=== PATIENT | female | born 1955 | race African-American/Black ===

== ENCOUNTER 2016-12-13 07:08 | Day surgery (SDC) | payer OTHER ==
[~2016-12-13] VITALS: Ht 162.6 cm; Wt 115.7 kg
[2016-12-13] MEDS ORDERED: ASPIRIN/SOD BICARB/CITRIC ACID 324MG TAB EFF ONE (07:31)
[2016-12-13] MEDS ORDERED: BENA20TA3 PO (07:43)
[2016-12-13] MEDS ORDERED: ROSU10TA PO (07:43)
[2016-12-13] MEDS ORDERED: ATEN-42 PO (07:43)
[2016-12-13] MEDS ORDERED: CYCL30CA PO (07:43)
[2016-12-13] MEDS ORDERED: ASPI-1035 PO (07:43)
[2016-12-13] MEDS ORDERED: IBUP-1636 PO (07:43)
[2016-12-13 07:48] LABS: HEMATOCRIT 38.4 % (36.0-48.0); HEMOGLOBIN 12.9 g/dL (12.0-16.0); MEAN CORPUSCULAR HEMOGLOBIN 30.5 pg (28.0-32.0); MEAN CORPUSCULAR HGB CONC 33.6 g/dL (31.0-37.0); MEAN CORPUSCULAR VOLUME 90.6 fL (81.0-99.0); PLATELET 391 x1000/uL (130-400); RED BLOOD CELL COUNT 4.24 mill/uL (4.2-5.4); RED CELL DISTRIBUTION WIDTH 12.4 % (11.6-14.6); WHITE BLOOD COUNT 8.3 x1000/uL (4.5-11.0)
[2016-12-13 07:49] LABS: ANION GAP 11; CALCIUM 9.4 mg/dL (8.5-10.1); CARBON DIOXIDE 25 mEq/L (21-32); CHLORIDE 108 mEq/L (98-107); INDEX HEMOLYSI 1 (1-3); INDEX ICTERIC 1 (1-4); INDEX LIPEMIC 1 (1-3)
[2016-12-13 07:51] LABS: PROTHROMBIN TIME 10.1 sec
[2016-12-13 07:53] LABS: UREA NITROGEN BLOOD 14 mg/dL (7-21); eGFR > 60 mL/min (>60)
[2016-12-13] MEDS ORDERED: LIDOCAINE HCL 1% 20ML VIAL (Pyxis) INJ ONE (07:53)
[2016-12-13] MEDS ORDERED: IODIXANOL 320MG/ML 100 ML BOTTLE IV ONE (07:53)
[2016-12-13] MEDS ORDERED: MIDAZOLAM HCL 2 MG/2 ML VIAL ONE ×2 (08:02→08:37)
[2016-12-13] MEDS ORDERED: FENTANYL CITRATE/PF 50MCG/ML 2ML VIAL ONE (08:02)
[2016-12-13] MEDS ORDERED: HYDROMORPHONE HCL/PF 2MG/ML (OR) ONE (08:03)
[2016-12-13] MEDS ORDERED: HEPARIN SODIUM 1,000 UNIT/1ML VIAL IV ONE (08:10)
[2016-12-13] MEDS ORDERED: ACETAMINOPHEN 325MG TABLET PO PRN (09:00)
[2016-12-13] MEDS ORDERED: MORPHINE SULFATE 2 MG/ML CPJ (NOT FOR IM USE) IV PRN (09:00)
[2016-12-13] MEDS ORDERED: ATROPINE SULFATE 1MG/10ML SYR IV PRN (09:00)
[2016-12-13] MEDS ORDERED: ONDANSETRON HCL 4MG/2ML VIAL IV PRN (09:00)
[2016-12-13] MEDS ORDERED: SODIUM CHLORIDE 0.45% 1,000 ML IV ONE (09:00)
== END 2016-12-13 14:00 | disposition home or self-care (01) ==
LOC: CCL 07:08
PROVIDERS: ATTEND Specialist
DX: I25.10 Atherosclerotic heart disease of native coronary artery without angina pectoris (principal); E78.00 Pure hypercholesterolemia, unspecified; I10 Essential (primary) hypertension; E66.9 Obesity, unspecified; Z95.5 Presence of coronary angioplasty implant and graft
CPT/HCPCS: 36415; 80048; 85027; 85610; 85730; 93458; C1769; C1887; C1893; J1170; J1644; J2250; J3010; J3490; Q9967

== ENCOUNTER 2019-04-30 06:42 | Day surgery (SDC) | payer OTHER ==
[~2019-04-30] VITALS: Ht 160 cm; Wt 117.5 kg
[~2019-04-30 06:42] MED LIST: ASPI-1393 PO; ATEN-42 PO; BENA20TA10 PO; CRES10 PO; CYCL30CA PO; IBUP-1636 PO
[2019-04-30] MEDS ORDERED: MONT10TA21 PO (07:48)
[2019-04-30] MEDS ORDERED: LOSA50TA41 PO (07:48)
[2019-04-30] MEDS ORDERED: METO25TA6 PO (07:48)
[2019-04-30] MEDS ORDERED: TIZA4CAP6 PO (07:48)
[2019-04-30] MEDS ORDERED: ASPIRIN/SOD BICARB/CITRIC ACID 324MG TAB EFF ONE (07:58)
[2019-04-30] MEDS ORDERED: LIDOCAINE HCL 1% 20ML VIAL (Pyxis) INJ ONE (08:09)
[2019-04-30] MEDS ORDERED: IODIXANOL 320MG/ML 100 ML BOTTLE IV ONE (08:10)
[2019-04-30] MEDS ORDERED: MIDAZOLAM HCL 2 MG/2 ML VIAL ONE ×2 (08:11→09:13)
[2019-04-30] MEDS ORDERED: FENTANYL CITRATE/PF 50MCG/ML 2ML VIAL ONE (08:12)
[2019-04-30] MEDS ORDERED: HEPARIN SODIUM 1,000 UNIT/1ML VIAL IV ONE (09:00)
[2019-04-30] MEDS ORDERED: NICARDIPINE 100MCG/ML 10ML VIAL (CATH LAB) IV ONE (09:00)
[2019-04-30] MEDS ORDERED: NITROGLYCERIN 50MCG/ML 10ML VIAL (CATH LAB) IV ONE (09:00)
[2019-04-30] MEDS ORDERED: ACETAMINOPHEN 325MG TABLET PO PRN (09:15)
[2019-04-30] MEDS ORDERED: ATROPINE SULFATE 1MG/10ML SYR IV PRN (09:15)
[2019-04-30] MEDS ORDERED: MORPHINE SULFATE 2 MG/ML CPJ (NOT FOR IM USE) IV PRN (09:15)
[2019-04-30] MEDS ORDERED: ONDANSETRON HCL 4MG/2ML INJ IV PRN (09:15)
== END 2019-04-30 15:40 | disposition home or self-care (01) ==
LOC: CCL 06:42
PROVIDERS: ATTEND Specialist
DX: I25.10 Atherosclerotic heart disease of native coronary artery without angina pectoris (principal); E66.01 Morbid (severe) obesity due to excess calories; E78.5 Hyperlipidemia, unspecified; I10 Essential (primary) hypertension; I25.2 Old myocardial infarction; Z87.891 Personal history of nicotine dependence; Z95.5 Presence of coronary angioplasty implant and graft; Z88.5 Allergy status to narcotic agent; Z79.82 Long term (current) use of aspirin; Z79.899 Other long term (current) drug therapy
CPT/HCPCS: 71045; 93005; 93458; 93880; 93970; 99152; 99153; C1769; C1887; C1893; J1644; J2250; J3010; J3490; Q9967; 93459; G0500

== ENCOUNTER 2019-05-30 05:31 | Inpatient (IN) | payer OTHER ==
[2019-05-30] VITALS (54 sets, daily range): BP systolic 64–139; BP diastolic 27–93
[~2019-05-30] VITALS: Ht 160 cm; Wt 124.3 kg
[~2019-05-30 05:31] MED LIST changes: -ATEN-42 PO; -BENA20TA10 PO; -CRES10 PO; -CYCL30CA PO; +LACTATED RINGERS 1,000 ML IV SCH; +LOSA50TA41 PO; +METO25TA6 PO; +MONT10TA21 PO; +TIZA4CAP6 PO
[2019-05-30] MEDS ORDERED: THROMBIN (BOVINE) 5000 UNITS/VIAL TOP ONE ×3 (05:39→07:08)
[2019-05-30] MEDS ORDERED: METHYLENE BLUE 50 MG/10 ML AMP IV ONE (05:39)
[2019-05-30] MEDS ORDERED: BACITRACIN 15GM TUBE TOP ONE (05:39)
[2019-05-30] MEDS ORDERED: NORMAL SALINE 0.9% 10 ML SYR ONE (05:40)
[2019-05-30] MEDS ORDERED: BACITRACIN 50,000 UNITS/VIAL ONE (05:40)
[2019-05-30] MEDS ORDERED: HEPARIN 1000 UNITS/ML 10ML ONE ×2 (05:44→07:04)
[2019-05-30] MEDS ORDERED: NICARDIPINE 50 MG in NS 250 ML IV SCH (06:00)
[2019-05-30] MEDS ORDERED: PAPAVERINE HCL 180MG in SODIUM CHLORIDE 0.9% 24ML IV SCH (06:00)
[2019-05-30] MEDS ORDERED: EPINEPHRINE 4 MG in DEXT 5% WATER 246 ML IV SCH (06:00)
[2019-05-30] MEDS ORDERED: AMINOCAPROIC ACID 10,000 MG in SODIUM CHLORIDE 0.9% 460 ML IV SCH (06:00)
[2019-05-30] MEDS ORDERED: NOREPINEPHRINE 4 MG in DEXT 5% WATER 246 ML IV SCH (06:00)
[2019-05-30] MEDS ORDERED: CEFAZOLIN 2,000 MG in DEXT 5% WATER 100 ML IV SCH (06:00)
[2019-05-30] MEDS ORDERED: DOBUTAMINE 250MG PREMIX 250 ML IV SCH (06:00)
[2019-05-30] MEDS ORDERED: DEL NIDO ELECTROLYTE-S(PH 7.4) 1,000 ML IV SCH ×2 (06:00)
[2019-05-30] MEDS ORDERED: PHENYLEPHRINE 10 MG in DEXT 5% WATER 249 ML IV SCH (06:00)
[2019-05-30] MEDS ORDERED: INSULIN REGULAR (DRIP) 100 UNITS in SODIUM CHLORIDE 0.9% 99 ML IV SCH (06:00)
[2019-05-30] MEDS ORDERED: NITROGLYCERIN 50MG PREMIX 250 ML IV ONE (06:17)
[2019-05-30] MEDS ORDERED: SEVOFLURANE 250 ML LIQUID INH ONE (06:17)
[2019-05-30] MEDS ORDERED: MIDAZOLAM HCL 2 MG/2 ML VIAL ONE (06:34)
[2019-05-30] MEDS ORDERED: FENTANYL CITRATE/PF 50MCG/ML 5ML VIAL ONE (06:34)
[2019-05-30] MEDS ORDERED: PROPOFOL 200MG/20ML VIAL IV ONE (06:34)
[2019-05-30] MEDS ORDERED: ESMOLOL HCL 10MG/ML 10ML VIAL IV ONE (06:39)
[2019-05-30] MEDS ORDERED: STERILE WATER FOR INJECTION 10ML VIAL ONE (06:42)
[2019-05-30] MEDS ORDERED: ALBUMIN HUMAN 25GM/100ML (25%) IV ONE ×2 (07:03→11:54)
[2019-05-30] MEDS ORDERED: PHENYLEPHRINE HCL 10 MG/ML 1ML (IV VIAL) IV ONE (07:03)
[2019-05-30] MEDS ORDERED: AMINOCAPROIC ACID 250 MG/ML 20ML VIAL ONE ×3 (07:03→08:38)
[2019-05-30] MEDS ORDERED: CALCIUM CHLORIDE 1GM/10ML SYR IV ONE (07:03)
[2019-05-30] MEDS ORDERED: MANNITOL 20% 500 ML IV ONE (07:03)
[2019-05-30] MEDS ORDERED: SODIUM BICARBONATE 8.4% 1 MEQ/ML 50ML SYR IV ONE ×2 (07:04→11:51)
[2019-05-30] MEDS ORDERED: HEPARIN 10,000 UNITS/ML VIAL ONE (07:04)
[2019-05-30] MEDS ORDERED: SUCCINYLCHOLINE CHLORIDE 200MG/10ML IV ONE (07:16)
[2019-05-30] MEDS ORDERED: CRES10 PO (07:35)
[2019-05-30] MEDS ORDERED: TRAM50TA3 PO (07:35)
[2019-05-30] MEDS ORDERED: PROPOFOL 10MG/ML 100ML 100 ML IV ONE (10:29)
[2019-05-30] MEDS ORDERED: ROCURONIUM BROMIDE 10MG/ML VIAL 5ML IV ONE ×2 (11:07→14:05)
[2019-05-30] MEDS ORDERED: SODIUM CHLORIDE 0.9% 10ML VIAL ONE (11:21)
[2019-05-30] MEDS ORDERED: CEFAZOLIN SODIUM 1000MG/VIAL ONE (11:22)
[2019-05-30] MEDS ORDERED: ALBUMIN HUMAN 12.5G/250ML (5%) IV ONE (11:54)
[2019-05-30] MEDS ORDERED: FENTANYL CITRATE/PF 50MCG/ML 2ML VIAL ONE (12:19)
[2019-05-30] MEDS ORDERED: DOPAMINE 400MG/250ML PREMIX 250 ML IV ONE (12:39)
[2019-05-30] MEDS ORDERED: PROTAMINE SULFATE 10MG/ML VIAL 25ML IV ONE (12:49)
[2019-05-30] MEDS ORDERED: EPINEPHRINE 0.1MG/ML (1:10,000) 10ML SYR ONE (12:50)
[2019-05-30 14:14] LABS: BASOPHILS % 0.1 % (0.0-2.0); EOSINOPHILS % 0.1 % (0.0-5.0); HEMATOCRIT. 24.2 % (36.0-48.0); HEMOGLOBIN. 8.2 g/dL (12.0-16.0); LYMPHOCYTES % 8.1 % (20.0-50.0); MEAN CORPUSCULAR HEMOGLOBIN 31.1 pg (28.0-32.0); MEAN CORPUSCULAR VOLUME 91.2 fL (81.0-99.0); MEAN PLATELET VOLUME 8.5 fl (7.4-10.4); MONOCYTES % 6.3 % (2.0-8.0); NEUTROPHILS % 85.4 % (40.0-76.0); PLATELET 196 x1000/uL (130-400); RED BLOOD CELL COUNT 2.65 mill/uL (4.2-5.4); RED CELL DISTRIBUTION WIDTH 12.6 % (11.6-14.6)
[2019-05-30 14:26] LABS: CHLORIDE 110 mEq/L (98-107)
[2019-05-30 14:33] LABS: PHOSPHORUS 3.6 mg/dL (2.5-4.9)
[2019-05-30] MEDS ORDERED: SODIUM CHLORIDE 0.9% 500 ML IV PRN (14:34)
[2019-05-30] MEDS ORDERED: MAGNESIUM SULFATE 3 GM in DEXT 5% WATER 100 ML IV PRN (14:45)
[2019-05-30] MEDS ORDERED: EPINEPHRINE 1 MG in DEXT 5% WATER 250 ML IV SCH (14:45)
[2019-05-30] MEDS ORDERED: ONDANSETRON HCL 4MG/2ML INJ IV PRN (14:45)
[2019-05-30] MEDS ORDERED: MAGNESIUM 2 G PREMIX 50 ML IV PRN ×2 (14:45→15:30)
[2019-05-30] MEDS ORDERED: MAGNESIUM 1 G PREMIX 100 ML IV PRN ×2 (14:45→15:20)
[2019-05-30] MEDS ORDERED: ALBUMIN HUMAN 12.5G/250ML (5%) IV PRN (14:45)
[2019-05-30] MEDS ORDERED: KCL 10MEQ/50ML PREMIX 200 ML IV PRN (15:00)
[2019-05-30] MEDS ORDERED: DEXTROSE 50% WATER 50ML SYRINGE IV PRN ×2 (15:00)
[2019-05-30] MEDS ORDERED: KCL 10MEQ/50ML PREMIX 150 ML IV PRN (15:00)
[2019-05-30 15:04] LABS: INR 1.1; PARTIAL THROMBOPLASTIN TIME 38.6 sec (23.4-31.0); PROTHROMBIN TIME 11.4 sec (9.6-11.0)
[2019-05-30 15:28] LABS: BG BASE EXCESS -2.5 mmol/L (-2.0-2.0); BG CARBOXYHEMOGLOBIN 0.3 % (0.5-1.5); BG DEOXYHEMOGLOBIN 1.1 % (0.0-5.0); BG FRACTION INSPIRED OXYGEN 100; BG HCO3 ACT 21.6 mmol/L (22.0-26.0); BG METHEMOGLOBIN 0.2 % (0.0-1.5); BG OXYGEN SATURATION 98.9 % (92.0-98.5); BG OXYHEMOGLOBIN 98.4 % (94.0-97.0); BG PH 7.409 (7.350-7.450); BG PO2 241.4 mmHg (75.0-100.0); BG SAMPLE SITE A-LINE; BG TIDAL VOLUME(mL) 475 mL; BG TOTAL HEMOGLOBIN 10.2 g/dL (12.0-18.0); BG VENT MODE VENT - A/C; BG VENT RATE 18 set
[2019-05-30 15:29] LABS: HEMATOCRIT. 27.6 % (36.0-48.0); HEMOGLOBIN. 9.4 g/dL (12.0-16.0); MEAN CORPUSCULAR HEMOGLOBIN 31.1 pg (28.0-32.0); MEAN CORPUSCULAR VOLUME 91.2 fL (81.0-99.0); MEAN PLATELET VOLUME 8.6 fl (7.4-10.4); PLATELET 196 x1000/uL (130-400); RED BLOOD CELL COUNT 3.03 mill/uL (4.2-5.4); RED CELL DISTRIBUTION WIDTH 12.6 % (11.6-14.6)
[2019-05-30] MEDS: MAGNESIUM HYDROXIDE 400MG/5ML 30ML UDC PO SCH ×3 (15:30→23:37)
[2019-05-30] MEDS: DEXT 5%/0.45% NACL 1000ML 1,000 ML IV SCH (15:36)
[2019-05-30] MEDS ORDERED: EPINEPHRINE 4 MG in SODIUM CHLORIDE 0.9% 246 ML IV PRN (15:45)
[2019-05-30] MEDS ORDERED: NITROGLYCERIN 50MG PREMIX 250 ML IV SCH (16:00)
[2019-05-30] MEDS: BLOOD SUGAR DIAGNOSTIC STRIP TEST SCH ×8 (16:00→23:12)
[2019-05-30] MEDS: IPRATROPIUM/ALBUTEROL 0.5-3(2.5)MG/3ML NEB HHN SCH ×2 (16:09→21:14)
[2019-05-30 16:11] LABS: PLATELET ESTIMATE NORMAL
[2019-05-30] MEDS: MORPHINE SULFATE 2 MG/ML CPJ (NOT FOR IM USE) IV PRN ×3 (16:33→21:33)
[2019-05-30] MEDS: BACITRACIN 15GM TUBE TOP SCH (16:49)
[2019-05-30 16:58] LABS: BG BASE EXCESS -2.8 mmol/L (-2.0-2.0); BG CARBOXYHEMOGLOBIN 0.3 % (0.5-1.5); BG DEOXYHEMOGLOBIN 2.3 % (0.0-5.0); BG FRACTION INSPIRED OXYGEN 50; BG HCO3 ACT 21.7 mmol/L (22.0-26.0); BG METHEMOGLOBIN 0.2 % (0.0-1.5); BG OXYGEN SATURATION 97.7 % (92.0-98.5); BG OXYHEMOGLOBIN 97.2 % (94.0-97.0); BG PCO2 36.5 mmHg (35.0-45.0); BG PH 7.392 (7.350-7.450); BG PO2 123.8 mmHg (75.0-100.0); BG PRESSURE SUPPORT 10; BG SAMPLE SITE A-LINE; BG TIDAL VOLUME(mL) 475 mL; BG TOTAL HEMOGLOBIN 10.1 g/dL (12.0-18.0); BG VENT MODE VENT - SIMV; BG VENT RATE 8 set
[2019-05-30] MEDS: DOCUSATE SODIUM 100MG CAPSULE PO SCH (17:00)
[2019-05-30] MEDS: MAGNESIUM/ALUMINUM HYDROXIDE/SIMETHICONE 30ML UDC NG SCH ×2 (17:14→20:00)
[2019-05-30] MEDS: ACETAMINOPHEN 325MG TABLET PO PRN (17:40)
[2019-05-30] MEDS: INSULIN REGULAR (DRIP) 100 UNITS in SODIUM CHLORIDE 0.9% 100 ML IV SCH (18:23)
[2019-05-30] MEDS ORDERED: EPINEPHRINE 4 MG in DEXT 5% WATER 250 ML IV SCH (18:30)
[2019-05-30 18:51] LABS: BG BASE EXCESS -2.8 mmol/L (-2.0-2.0); BG CARBOXYHEMOGLOBIN 0.3 % (0.5-1.5); BG FRACTION INSPIRED OXYGEN 40; BG HCO3 ACT 22.1 mmol/L (22.0-26.0); BG OXYHEMOGLOBIN 96.7 % (94.0-97.0); BG PCO2 38.7 mmHg (35.0-45.0); BG PH 7.374 (7.350-7.450); BG PO2 105.7 mmHg (75.0-100.0); BG PRESSURE SUPPORT 10; BG SAMPLE SITE A-LINE; BG TOTAL HEMOGLOBIN 10.1 g/dL (12.0-18.0); BG VENT MODE VENT - CPAP
[2019-05-30 20:26] LABS: BG BASE EXCESS -3.1 mmol/L (-2.0-2.0); BG CARBOXYHEMOGLOBIN 0.3 % (0.5-1.5); BG DEOXYHEMOGLOBIN 6.6 % (0.0-5.0); BG FRACTION INSPIRED OXYGEN 28; BG HCO3 ACT 21.6 mmol/L (22.0-26.0); BG METHEMOGLOBIN 0.2 % (0.0-1.5); BG OXYGEN SATURATION 93.4 % (92.0-98.5); BG OXYHEMOGLOBIN 92.9 % (94.0-97.0); BG PCO2 37.4 mmHg (35.0-45.0); BG PO2 71.4 mmHg (75.0-100.0); BG SAMPLE SITE A-LINE; BG TOTAL HEMOGLOBIN 9.5 g/dL (12.0-18.0); BG VENT MODE NASAL CANNULA
[2019-05-30] MEDS: CEFAZOLIN 1000MG PREMIX 50 ML IV SCH (20:38)
[2019-05-30] MEDS: OXYCODONE HCL/ACETAMINOPHEN 5/325MG TABLET PO PRN (22:56)
[2019-05-30 23:26] LABS: HEMATOCRIT. 26.7 % (36.0-48.0); HEMOGLOBIN. 8.9 g/dL (12.0-16.0); MEAN CORPUSCULAR HEMOGLOBIN 30.8 pg (28.0-32.0); MEAN CORPUSCULAR VOLUME 92.2 fL (81.0-99.0); PLATELET 181 x1000/uL (130-400); RED CELL DISTRIBUTION WIDTH 12.8 % (11.6-14.6)
[2019-05-30] MEDS: KCL 10MEQ/50ML PREMIX 100 ML IV PRN (23:53)
[2019-05-31] VITALS (96 sets, daily range): BP systolic 64–247; BP diastolic 19–245
[2019-05-31] MEDS: BLOOD SUGAR DIAGNOSTIC STRIP TEST SCH ×24 (00:13→23:00)
[2019-05-31 00:29] LABS: PLATELET ESTIMATE NORMAL
[2019-05-31] MEDS: IPRATROPIUM/ALBUTEROL 0.5-3(2.5)MG/3ML NEB HHN SCH ×7 (00:52→23:49)
[2019-05-31] MEDS: MORPHINE SULFATE 2 MG/ML CPJ (NOT FOR IM USE) IV PRN (01:45)
[2019-05-31] MEDS: MAGNESIUM HYDROXIDE 400MG/5ML 30ML UDC PO SCH ×5 (03:58→20:06)
[2019-05-31] MEDS: CEFAZOLIN 1000MG PREMIX 50 ML IV SCH ×3 (03:58→20:05)
[2019-05-31 05:48] LABS: HEMATOCRIT. 26.7 % (36.0-48.0); HEMOGLOBIN. 9.2 g/dL (12.0-16.0); MEAN CORPUSCULAR HEMOGLOBIN 31.6 pg (28.0-32.0); MEAN CORPUSCULAR VOLUME 92.2 fL (81.0-99.0); MEAN PLATELET VOLUME 9.1 fl (7.4-10.4); PLATELET 189 x1000/uL (130-400); RED CELL DISTRIBUTION WIDTH 12.8 % (11.6-14.6)
[2019-05-31 05:52] LABS: CHLORIDE 107 mEq/L (98-107)
[2019-05-31 06:03] LABS: PHOSPHORUS 3.4 mg/dL (2.5-4.9)
[2019-05-31] MEDS: KCL 10MEQ/50ML PREMIX 100 ML IV PRN (06:08)
[2019-05-31] MEDS ORDERED: FUROSEMIDE 20MG/2ML VIAL IVP NR (07:41)
[2019-05-31] MEDS ORDERED: KETOROLAC 15MG/ML VIAL IV NR (07:42)
[2019-05-31] MEDS: DEXT 5%/0.45% NACL 1000ML 1,000 ML IV SCH (08:13)
[2019-05-31] MEDS: FAMOTIDINE 20MG/2ML VIAL IV SCH ×2 (08:14→21:30)
[2019-05-31] MEDS: DOCUSATE SODIUM 100MG CAPSULE PO SCH ×2 (08:14→16:53)
[2019-05-31] MEDS: BACITRACIN 15GM TUBE TOP SCH ×2 (08:14→16:53)
[2019-05-31 09:50] LABS: PLATELET ESTIMATE NORMAL
[2019-05-31] MEDS ORDERED: POTASSIUM CHLORIDE 10MEQ IN WATER 50ML PREMIX IV ONE (10:00)
[2019-05-31] MEDS ORDERED: ALBUMIN HUMAN 12.5G/250ML (5%) IV ONE (10:00)
[2019-05-31] MEDS ORDERED: MAGNESIUM SULFATE 1G IN DEXT 5% 100ML PREMIX IV ONE (10:00)
[2019-05-31] MEDS ORDERED: ONDANSETRON HCL 4MG/2ML INJ ONE (10:00)
[2019-05-31] MEDS: INSULIN REGULAR (DRIP) 100 UNITS in SODIUM CHLORIDE 0.9% 100 ML IV SCH (11:21)
[2019-05-31] MEDS: OXYCODONE HCL/ACETAMINOPHEN 5/325MG TABLET PO PRN ×2 (13:29→19:50)
[2019-05-31] MEDS ORDERED: FUROSEMIDE 40MG/4ML VIAL IVP ONE (14:00)
[2019-05-31] MEDS ORDERED: FUROSEMIDE 40MG/4ML VIAL IVP SCH (14:30)
[2019-05-31] MEDS: ACETAMINOPHEN 325MG TABLET PO PRN (15:20)
[2019-05-31] MEDS ORDERED: MAGNESIUM HYDROXIDE 400MG/5ML 30ML UDC ONE (16:54)
[2019-05-31] MEDS: ASPIRIN 81MG TABLET PO SCH (17:42)
[2019-05-31] MEDS ORDERED: REPATHA SURECLICK 140 MG/ML SUBCUT SCH (21:00)
[2019-06-01] VITALS (34 sets, daily range): BP systolic 79–145; BP diastolic 23–79
[2019-06-01] MEDS: BLOOD SUGAR DIAGNOSTIC STRIP TEST SCH ×24 (00:08→23:10)
[2019-06-01] MEDS: MAGNESIUM HYDROXIDE 400MG/5ML 30ML UDC PO SCH ×6 (00:30→20:00)
[2019-06-01] MEDS: IPRATROPIUM/ALBUTEROL 0.5-3(2.5)MG/3ML NEB HHN SCH ×5 (03:57→19:55)
[2019-06-01 05:42] LABS: BASOPHILS % 0.1 % (0.0-2.0); HEMATOCRIT. 25.2 % (36.0-48.0); HEMOGLOBIN. 8.6 g/dL (12.0-16.0); LYMPHOCYTES % 9.3 % (20.0-50.0); MEAN CORPUSCULAR HEMOGLOBIN 31.9 pg (28.0-32.0); MEAN PLATELET VOLUME 9.5 fl (7.4-10.4); MONOCYTES % 5.7 % (2.0-8.0); NEUTROPHILS % 84.9 % (40.0-76.0); PLATELET 173 x1000/uL (130-400); RED BLOOD CELL COUNT 2.68 mill/uL (4.2-5.4); RED CELL DISTRIBUTION WIDTH 12.9 % (11.6-14.6)
[2019-06-01] MEDS: KETOROLAC 15MG/ML VIAL IV PRN ×2 (05:57→11:54)
[2019-06-01 06:06] LABS: PHOSPHORUS 2.1 mg/dL (2.5-4.9)
[2019-06-01] MEDS: FAMOTIDINE 20MG/2ML VIAL IV SCH ×2 (08:26→21:12)
[2019-06-01] MEDS: DOCUSATE SODIUM 100MG CAPSULE PO SCH ×2 (08:26→16:59)
[2019-06-01] MEDS: ASPIRIN 81MG TABLET PO SCH (08:26)
[2019-06-01] MEDS: METOPROLOL TARTRATE 25MG TABLET PO SCH ×2 (08:31→21:00)
[2019-06-01] MEDS: BACITRACIN 15GM TUBE TOP SCH ×2 (08:32→16:59)
[2019-06-01] MEDS: KCL 10MEQ/50ML PREMIX 100 ML IV PRN ×2 (08:41→10:33)
[2019-06-01] MEDS: POLYETHYLENE GLYCOL 3350 (17GM) 1 DOSE PACK PO SCH (11:53)
[2019-06-01] MEDS ORDERED: FUROSEMIDE 40MG/4ML VIAL IVP NR (12:00)
[2019-06-01] MEDS: INSULIN REGULAR (DRIP) 100 UNITS in SODIUM CHLORIDE 0.9% 100 ML IV SCH (12:41)
[2019-06-01] MEDS: IRON SUCROSE COMPLEX 100 MG/5 ML ML IV SCH (16:59)
[2019-06-01] MEDS ORDERED: DOCUSATE SODIUM 100MG CAPSULE PO SCH (17:00)
[2019-06-01] MEDS ORDERED: IPRATROPIUM/ALBUTEROL 0.5-3(2.5)MG/3ML NEB HHN SCH (18:00)
[2019-06-01] MEDS: ACETAMINOPHEN 325MG TABLET PO PRN (18:24)
[2019-06-01] MEDS: OXYCODONE HCL/ACETAMINOPHEN 5/325MG TABLET PO PRN (20:47)
[2019-06-01] MEDS ORDERED: EPOETIN ALFA 4000UNITS/ML VIAL SUBCUT NR (21:00)
[2019-06-01] MEDS: ATORVASTATIN CALCIUM 20MG TABLET PO SCH (21:22)
[2019-06-02] VITALS (32 sets, daily range): BP systolic 96–125; BP diastolic 34–79
[2019-06-02] MEDS: ATORVASTATIN CALCIUM 20MG TABLET PO SCH ×2 (00:07→21:15)
[2019-06-02] MEDS: BLOOD SUGAR DIAGNOSTIC STRIP TEST SCH ×17 (00:20→21:15)
[2019-06-02] MEDS: IPRATROPIUM/ALBUTEROL 0.5-3(2.5)MG/3ML NEB HHN SCH ×6 (00:30→20:21)
[2019-06-02 05:00] LABS: BASOPHILS % 0.3 % (0.0-2.0); EOSINOPHILS % 0.4 % (0.0-5.0); HEMATOCRIT. 22.5 % (36.0-48.0); HEMOGLOBIN. 7.6 g/dL (12.0-16.0); LYMPHOCYTES % 12.9 % (20.0-50.0); MEAN CORPUSCULAR HEMOGLOBIN 31.6 pg (28.0-32.0); MEAN CORPUSCULAR VOLUME 93.3 fL (81.0-99.0); MEAN PLATELET VOLUME 9.4 fl (7.4-10.4); MONOCYTES % 7.7 % (2.0-8.0); NEUTROPHILS % 78.7 % (40.0-76.0); PLATELET 182 x1000/uL (130-400); RED BLOOD CELL COUNT 2.42 mill/uL (4.2-5.4)
[2019-06-02 05:25] LABS: PHOSPHORUS 2.8 mg/dL (2.5-4.9)
[2019-06-02] MEDS: FAMOTIDINE 20MG/2ML VIAL IV SCH (08:26)
[2019-06-02] MEDS: IRON SUCROSE COMPLEX 100 MG/5 ML ML IV SCH (08:26)
[2019-06-02] MEDS: POLYETHYLENE GLYCOL 3350 (17GM) 1 DOSE PACK PO SCH (08:27)
[2019-06-02] MEDS: DOCUSATE SODIUM 100MG CAPSULE PO SCH ×2 (08:27→17:00)
[2019-06-02] MEDS: ASPIRIN 81MG TABLET PO SCH (08:27)
[2019-06-02] MEDS: METOPROLOL TARTRATE 25MG TABLET PO SCH ×2 (08:27→21:00)
[2019-06-02] MEDS: BACITRACIN 15GM TUBE TOP SCH ×2 (09:34→17:20)
[2019-06-02] MEDS: ACETAMINOPHEN 325MG TABLET PO PRN (09:35)
[2019-06-02] MEDS ORDERED: DEXTROSE 50% WATER 50ML SYRINGE IV PRN (15:00)
[2019-06-02] MEDS: KETOROLAC 15MG/ML VIAL IV PRN (15:31)
[2019-06-02] MEDS: INSULIN LISPRO 100 UNITS/ML SUBCUT SCH ×2 (17:21→21:00)
[2019-06-02] MEDS: OXYCODONE HCL/ACETAMINOPHEN 5/325MG TABLET PO PRN (21:14)
[2019-06-02] MEDS: FAMOTIDINE 20MG TABLET PO SCH (21:15)
[2019-06-03] VITALS (12 sets, daily range): BP systolic 95–151; BP diastolic 55–73
[2019-06-03] MEDS: IPRATROPIUM/ALBUTEROL 0.5-3(2.5)MG/3ML NEB HHN SCH ×6 (01:09→19:56)
[2019-06-03 05:38] LABS: BASOPHILS % 0.4 % (0.0-2.0); EOSINOPHILS % 2.2 % (0.0-5.0); HEMATOCRIT. 23.7 % (36.0-48.0); HEMOGLOBIN. 7.7 g/dL (12.0-16.0); LYMPHOCYTES % 14.2 % (20.0-50.0); MEAN CORPUSCULAR HEMOGLOBIN 30.2 pg (28.0-32.0); MEAN CORPUSCULAR VOLUME 93.5 fL (81.0-99.0); MEAN PLATELET VOLUME 8.7 fl (7.4-10.4); MONOCYTES % 8.2 % (2.0-8.0); PLATELET 254 x1000/uL (130-400); RED BLOOD CELL COUNT 2.54 mill/uL (4.2-5.4)
[2019-06-03] MEDS: BLOOD SUGAR DIAGNOSTIC STRIP TEST SCH ×4 (06:45→21:13)
[2019-06-03] MEDS: INSULIN LISPRO 100 UNITS/ML SUBCUT SCH ×4 (07:20→21:00)
[2019-06-03] MEDS: ASPIRIN 81MG TABLET PO SCH (08:50)
[2019-06-03] MEDS: FAMOTIDINE 20MG TABLET PO SCH ×2 (08:50→17:40)
[2019-06-03] MEDS: IRON SUCROSE COMPLEX 100 MG/5 ML ML IV SCH (08:51)
[2019-06-03] MEDS: METOPROLOL TARTRATE 25MG TABLET PO SCH ×2 (08:52→21:46)
[2019-06-03] MEDS: DOCUSATE SODIUM 100MG CAPSULE PO SCH ×2 (08:54→17:00)
[2019-06-03] MEDS: POLYETHYLENE GLYCOL 3350 (17GM) 1 DOSE PACK PO SCH (08:54)
[2019-06-03] MEDS: BACITRACIN 15GM TUBE TOP SCH ×2 (08:55→17:40)
[2019-06-03 11:59] LABS: TOTAL IRON BINDING CAPACITY 155 ug/dL (250-450)
[2019-06-03 12:34] LABS: VITAMIN B12 SERUM 629 pg/mL (211-911)
[2019-06-03] MEDS ORDERED: FERR-71 MT (16:05)
[2019-06-03] MEDS: KETOROLAC 15MG/ML VIAL IV PRN (20:09)
[2019-06-03] MEDS ORDERED: EPOETIN ALFA 4000UNITS/ML VIAL SUBCUT SCH (21:00)
[2019-06-03] MEDS: OXYCODONE HCL/ACETAMINOPHEN 5/325MG TABLET PO PRN (22:49)
[2019-06-04] VITALS (12 sets, daily range): BP systolic 100–128; BP diastolic 60–74
[2019-06-04] MEDS: IPRATROPIUM/ALBUTEROL 0.5-3(2.5)MG/3ML NEB HHN SCH ×5 (00:17→16:54)
[2019-06-04 06:03] LABS: CHLORIDE 106 mEq/L (98-107)
[2019-06-04 06:34] LABS: BASOPHILS % 0.7 % (0.0-2.0); EOSINOPHILS % 2.8 % (0.0-5.0); HEMATOCRIT. 23.9 % (36.0-48.0); HEMOGLOBIN. 7.9 g/dL (12.0-16.0); LYMPHOCYTES % 13.3 % (20.0-50.0); MEAN CORPUSCULAR HEMOGLOBIN 31.1 pg (28.0-32.0); MEAN CORPUSCULAR VOLUME 93.9 fL (81.0-99.0); MEAN PLATELET VOLUME 8.6 fl (7.4-10.4); MONOCYTES % 9.8 % (2.0-8.0); NEUTROPHILS % 73.4 % (40.0-76.0); PLATELET 294 x1000/uL (130-400); RED BLOOD CELL COUNT 2.54 mill/uL (4.2-5.4); RED CELL DISTRIBUTION WIDTH 12.7 % (11.6-14.6)
[2019-06-04] MEDS: BLOOD SUGAR DIAGNOSTIC STRIP TEST SCH ×3 (06:56→17:33)
[2019-06-04] MEDS: INSULIN LISPRO 100 UNITS/ML SUBCUT SCH ×3 (07:09→17:20)
[2019-06-04] MEDS: ASPIRIN 81MG TABLET PO SCH (08:47)
[2019-06-04] MEDS: POLYETHYLENE GLYCOL 3350 (17GM) 1 DOSE PACK PO SCH (08:47)
[2019-06-04] MEDS: IRON SUCROSE COMPLEX 100 MG/5 ML ML IV SCH (08:47)
[2019-06-04] MEDS: DOCUSATE SODIUM 100MG CAPSULE PO SCH (08:53)
[2019-06-04] MEDS: METOPROLOL TARTRATE 25MG TABLET PO SCH (08:53)
[2019-06-04] MEDS: FAMOTIDINE 20MG TABLET PO SCH ×2 (08:53→17:32)
[2019-06-04] MEDS: BACITRACIN 15GM TUBE TOP SCH ×2 (09:00→17:32)
== END 2019-06-04 20:31 | DRG 236 ==
LOC: OR 05:31 → CVICU 07:24 → 3WST 06-02 22:15
PROVIDERS: ADMIT Internal Medicine; ATTEND Internal Medicine
PROC: 02100Z9 Bypass Coronary Artery, One Artery from Left Internal Mammary, Open Approach (ICD-10-PCS; principal; 2019-05-30)
PROC: 021209W Bypass Coronary Artery, Three Arteries from Aorta with Autologous Venous Tissue, Open Approach (ICD-10-PCS; 2019-05-30)
PROC: 06BQ0ZZ Excision of Left Saphenous Vein, Open Approach (ICD-10-PCS; 2019-05-30)
PROC: 5A1221Z Performance of Cardiac Output, Continuous (ICD-10-PCS; 2019-05-30)
PROC: B246ZZ4 Ultrasonography of Right and Left Heart, Transesophageal (ICD-10-PCS; 2019-05-30)
PROC: 05HY33Z Insertion of Infusion Device into Upper Vein, Percutaneous Approach (ICD-10-PCS; 2019-06-01)
PROC: B54MZZA Ultrasonography of Right Upper Extremity Veins, Guidance (ICD-10-PCS; 2019-06-01)
DX: I21.4 Non-ST elevation (NSTEMI) myocardial infarction (principal); E46 Unspecified protein-calorie malnutrition; Z68.42 Body mass index [BMI] 45.0-49.9, adult; M48.061 Spinal stenosis, lumbar region without neurogenic claudication; I10 Essential (primary) hypertension; E78.1 Pure hyperglyceridemia; D64.9 Anemia, unspecified; E66.01 Morbid (severe) obesity due to excess calories; M54.16 Radiculopathy, lumbar region; E11.9 Type 2 diabetes mellitus without complications; E78.5 Hyperlipidemia, unspecified; G62.9 Polyneuropathy, unspecified; G89.4 Chronic pain syndrome; R26.9 Unspecified abnormalities of gait and mobility; I25.10 Atherosclerotic heart disease of native coronary artery without angina pectoris; K21.9 Gastro-esophageal reflux disease without esophagitis; Z90.710 Acquired absence of both cervix and uterus; Z95.5 Presence of coronary angioplasty implant and graft; Z79.899 Other long term (current) drug therapy; Z88.5 Allergy status to narcotic agent; Z56.0 Unemployment, unspecified
CPT/HCPCS: 36415; 36600; 71045; 76937; 80048; 82330; 82375; 82565; 82607; 82805; 82962; 83036; 83540; 83550; 83735; 84100; 84132; 84484; 84520; 85044; 85347; 85384; 85520; 86850; 86900; 86920; 87070; 93005; 94002; 94640; 94660; 97110; 97116; 97163; 97166; 97530; 97535; A4216; C1725; C1729; C1751; C1758; J0330; J0690; J0885; J1250; J1265; J1644; J1815; J1885; J1940; J2250; J2270; J2370; J2405; J2440; J2704; J2720; J3010; J3475; J3480; J3490; J7040; J7050; J7060; J7620; L3908; P9016; P9041; P9047; Q9968

== ENCOUNTER 2019-08-29 21:14 | Emergency (ER) | payer OTHER ==
[~2019-08-29] VITALS: Ht 162.6 cm; Wt 107.0 kg
[~2019-08-29 21:14] MED LIST changes: -ASPI-1393 PO; +ASPI-1497 PO; +CRES10 PO; +FERR-71 MT; -LACTATED RINGERS 1,000 ML IV SCH; +TRAM50TA3 PO
[2019-08-29 23:54] LABS: EOSINOPHILS % 2.2 % (0.0-5.0); HEMATOCRIT. 41.7 % (36.0-48.0); HEMOGLOBIN. 13.5 g/dL (12.0-16.0); LYMPHOCYTES % 27.7 % (20.0-50.0); MEAN CORPUSCULAR HEMOGLOBIN 28.9 pg (28.0-32.0); MEAN CORPUSCULAR VOLUME 89.3 fL (81.0-99.0); MEAN PLATELET VOLUME 9.2 fl (7.4-10.4); MONOCYTES % 5.6 % (2.0-8.0); NEUTROPHILS % 63.5 % (40.0-76.0); PLATELET 382 x1000/uL (130-400); RED BLOOD CELL COUNT 4.67 mill/uL (4.2-5.4); RED CELL DISTRIBUTION WIDTH 16.4 % (11.6-14.6)
[2019-08-29 23:58] LABS: CHLORIDE 108 mEq/L (98-107)
[2019-08-30 02:41] VITALS: BP 133/70
== END 2019-08-30 02:44 | disposition home or self-care (01) ==
LOC: ER 21:14
DX: R07.89 Other chest pain (principal); F41.9 Anxiety disorder, unspecified; F32.9 Major depressive disorder, single episode, unspecified; E78.00 Pure hypercholesterolemia, unspecified; I10 Essential (primary) hypertension; I25.2 Old myocardial infarction; Z90.710 Acquired absence of both cervix and uterus; Z98.890 Other specified postprocedural states; Z79.82 Long term (current) use of aspirin; Z79.899 Other long term (current) drug therapy; Z88.5 Allergy status to narcotic agent
CPT/HCPCS: 36415; 71045; 80053; 83880; 84484; 85025; 93005; 99284